=== PATIENT | female | born 1955 | race African-American/Black ===

== ENCOUNTER 2017-11-26 03:39 | Emergency (ER) | payer OTHER ==
[~2017-11-26] VITALS: Ht 162.6 cm; Wt 78.5 kg
[2017-11-26 03:40] VITALS: BP_SYST 147
--- NOTE | 2017-11-26 03:40 | NUR ---
Patient arrived to ED a/o x 4 with c/o irritation to mouth. C/O dryness around mouth. No redness or obvious deformity noted. Reports having recent fever and cough. Denies SOB. Denies CP.
--- NOTE | 2017-11-26 03:40 | NUR ---
Patient to ER bed 8 to gown for evaluation. Side rails up. Report given to Eladio SIMPSON.
--- NOTE | 2017-11-26 03:55 | NUR ---
ER at bedside examining patient.
[2017-11-26 04:13] VITALS: BP_SYST 143
--- NOTE | 2017-11-26 04:13 | NUR ---
Patient given written and verbal discharge instructions and verbalizes understanding. ER MD discussed with patient the results and treatment provided. Patient in stable condition. ID arm band removed. Rx of Promethazine and nesporin given. Patient educated on pain management and to follow up with PMD. Pain Scale 2/10 tolerable for patient. Opportunity for questions provided and answered.
== END 2017-11-26 04:13 | disposition home or self-care (01) ==
LOC: SED 03:39
DX: J06.9 Acute upper respiratory infection, unspecified (principal); R03.0 Elevated blood-pressure reading, without diagnosis of hypertension; L98.8 Other specified disorders of the skin and subcutaneous tissue; F17.200 Nicotine dependence, unspecified, uncomplicated
CPT/HCPCS: 99283